=== PATIENT | male | born 1990 | race African-American/Black ===

== ENCOUNTER 2019-02-21 10:55 | Emergency (ER) | payer SELFPAY ==
[~2019-02-21] VITALS: Ht 182.9 cm; Wt 70.3 kg
[2019-02-21 10:59] VITALS: BP 115/67
--- NOTE | 2019-02-21 11:35 | NUR ---
PT ALERT AND ORIENTED X 4, ADMITS TO SMOKING [employer]
--- NOTE | 2019-02-21 11:36 | NUR ---
(pt. ambulatory with a steady gait, Patient discharged to home in stable condition. Written and verbal after care instructions given. Patient verbalizes understanding of instruction.
--- NOTE | 2019-02-21 11:36 | NUR ---
PT SEEN AND REEVALUATED BY DR. RICHARDS
== END 2019-02-21 11:41 | disposition home or self-care (01) ==
LOC: EDBD 10:59 → ER 10:59
DX: F12.10 Cannabis abuse, uncomplicated (principal)